=== PATIENT | male | born 1945 | race Caucasian/White ===

== ENCOUNTER 2021-03-31 06:25 | Day surgery (SDC) | payer MEDICARE, OTHER ==
[~2021-03-31] VITALS: Ht 177.8 cm; Wt 63.6 kg
[~2021-03-31 06:25] MED LIST: ACETAMINOPHEN325 M1 PO; ALENDRONATE SOD10 MG PO; ALLOPURINOL300 MG PO; ALTACE10 MG PO; ASPIR 8181 MG PO; CALCIUM 600 +1 EAC2 PO; CARVEDILOL25 MG PO; CHOLESTYRAMINE378 GM PO; COUMADIN2.5 MG PO; DIGOXIN125 MCG PO; ELIQUIS5 MG PO; ENTRESTO 97 MG1 EACH PO; EUCRISA60 GM TOP; FUROSEMIDE40 MG PO; FUROSEMIDE80 MG PO; HYDRALAZINE HCL25 MG PO; HYDROXYZINE HCL25 MG PO; HYDROXYZINE PAM25 MG PO; ISOSORBIDE DINI20 MG PO; ISOSORBIDE MONO30 MG PO; KLOR-CON M2020 MEQ PO; LIPITOR40 MG PO; LORCET 5-325 M1 EACH PO; MAG-OXIDE400 MG PO; MAGNESIUM250 M1 PO; MAGOX 400400 MG PO; MULTI VITAMIN1 EACH PO; NIACIN ER500 MG PO; NIACIN ER750 MG PO; NIACIN500 M1 PO; NIASPAN500 MG PO; PERCOCET 7.5-31 EACH PO; PREDNISONE1 MG PO; PREDNISONE2.5 MG PO; PREDNISONE20 MG PO; SIMVASTATIN20 MG PO; SPIRONOLACTONE25 MG PO; TACROLIMUS30 G1 TOP; TRAMADOL HCL50 MG PO; TRIAMCINOLONE A15 G1 TOP; ULTRA-LIGHT RO1 EACH MISC; VITAMIN D31000 UNIT PO; WARFARIN SODIU2.5 MG PO; WARFARIN SODIUM5 MG PO
--- NOTE | 2021-03-31 08:55 | NUR ---
03/31/21 0855 Camryn Ford 0808 PT ARRIVED IN PACU SLEEPY WITH NO C/O'S. ABD SOFT AND PASSING FLATUS. 0815 SITTING UP IN BED TALKING WITH STAFF. 0830 GETTING DRESSED WITH STAND BY ASSIST. DECLINED WATER WHEN OFFERED. 0850 DC INSTRUCTIONS GIVEN. ALL QUESTIONS ANSWERED. LEFT VIA W/C.
--- NOTE | 2021-03-31 10:38 | OR ---
[facility] [address] [place], [place] [address] Signed DATE OF OPERATION: 03/31/2021 SURGEON: Kasandra Matias MD PREOPERATIVE DIAGNOSES: 1. Iron-deficiency anemia. 2. History of colonic polyps in 2001. 3. Unremarkable colonoscopy in 2008. POSTOPERATIVE DIAGNOSES: 1. Moderate-sized antral gastric ulcer. 2. Mild to moderate gastroduodenitis. 3. Small to moderate sized hiatal hernia. 4. 4 mm polyp at 7 cm/rectum. 5. Minimal sigmoid diverticulosis. 6. Minimal internal hemorrhoids. PROCEDURES: 1. EGD with CLOtest and biopsies of the pyloric bulb, antrum and GE junction. 2. Colonoscopy with hot biopsy. ESTIMATED BLOOD LOSS: None. INDICATIONS: Jhonathan is a 76-year-old gentleman asked to see me for upper and lower endoscopy. He is discovered to have iron-deficiency anemia. He had a colonoscopy in 2001 and had colonic polyps removed. He then had colonoscopy in 2008, which was unremarkable. He currently has no upper or lower GI complaints. There is no family history of colon cancer or polyps. In the office, I had given him pamphlets on both upper and lower endoscopy. We had reviewed the nature of the two tests. He understands there is risk including, but not limited to gas bloating, crampy abdominal pain, bleeding, perforation requiring surgery, and missed diagnosis. In addition, because of his advanced age and medical issues, we did ask an anesthesia provider to help us with increased monitoring and sedation with propofol. He had expressed understanding and wished to proceed. PROCEDURE NOTE: Jhonathan was taken into our endoscopy suite and placed in a supine semi-recumbent position. A bite block was utilized for the case. He was given monitored anesthesia care with propofol per our nurse clinical rehabilitation aide. The adult scope was introduced and Electronically Signed By: KASANDRA MATIAS MD 03/31/21 [facility] PATIENT NAME: JHONATHAN GRAY OPERATIVE REPORT DATE OF : 47 REPORT #: [id number] PHYSICIAN: KASANDRA MATIAS MD PCP: AIMEE NAVARRO [facility] REPORT IS CONFIDENTIAL AND NOT TO BE RELEASED WITHOUT AUTHORIZATION [facility] [address] [place], [place] [address] Signed advanced under direct visualization of camera out into the third portion of the duodenum without difficulty. The duodenum was unremarkable. The pyloric channel showed some mild patchy erythematous changes. The stomach itself showed mild to moderate patchy diffuse erythematous changes with areas of punctate hemorrhage. All consistent with his gastritis. Also, he has average sized ulcer in the antrum with adherent clot in the base. No active bleeding at this time. We took biopsies from the pyloric bulb and antrum for pathologic review. We took an additional biopsy of the antrum for CLOtest. Upon retroflexion of scope, he has a small to moderate sized hiatal hernia. The scope was withdrawn up to the area of GE junction, which was compliant without stricture. He had mild disruption to the Z-line. We went and took a biopsy along this area for pathologic review. No Carreon's mucosa. No distal esophagitis. No gastric or esophageal varices. The middle and upper esophagus were unremarkable. After this, the gas had been suctioned out and the gastroscope removed. Jhonathan tolerated the upper endoscopy quite well. Jhonathan was rotated into the left lateral decubitus position. He was given IV sedation with propofol per our nurse clinical rehabilitation aide. A digital rectal exam was performed and he had good sphincter tone. Prostate was moderately indurated and enlarged consistent with his age. The adult colonoscope had been introduced and advanced under direct visualization of the camera. It took some additional sedation and abdominal compression in order to advance the scope into the cecum itself. His prep was quite excellent. We could easily see the appendiceal orifice and ileocecal valve. The scope was then slowly withdrawn. He had just a few diverticula in the sigmoid colon. They were small to moderate in size, few in number, and scattered about. He had one tiny polyp at 7 cm easily removed with a hot biopsy forceps. Upon retroflexion of scope, he has very minimal internal hemorrhoid tissue. After this, the gas was suctioned out and the colonoscope removed. Jhonathan tolerated the lower endoscopy quite well. RECOMMENDATIONS: Jhonathan will resume aspirin and Eliquis after four weeks. We will start omeprazole 20 mg p.o. b.i.d. for two months and then once a day thereafter. I will see him back in the office in 7 to 14 days to review his results. MD DAVI Campbell/KEN /[id number] Electronically Signed By: KASANDRA MATIAS MD 03/31/21 1038 PATIENT NAME: JHONATHAN GRAY OPERATIVE REPORT DATE OF : 47 REPORT #: [id number] PHYSICIAN: KASANDRA MATIAS MD PCP: AIMEE NAVARRO [facility] REPORT IS CONFIDENTIAL AND NOT TO BE RELEASED WITHOUT AUTHORIZATION [facility] [address] [place], [place] [address] Signed cc: Aimee Matias MD Copies: KASANDRA MATIAS MD ~ Electronically Signed By: KASANDRA MATIAS MD 03/31/21 1038 PATIENT NAME: JHONATHAN GRAY GUILLERMO OPERATIVE REPORT DATE OF : 47 REPORT #: [id number] PHYSICIAN: KASANDRA MATIAS MD PCP: AIMEE NAVARRO [facility] REPORT IS CONFIDENTIAL AND NOT TO BE RELEASED WITHOUT AUTHORIZATION
--- NOTE | 2021-04-01 16:23 | PATH ---
[facility] [address] [place], [place] [address] Signed SPECIMEN(S): A DUODENAL BULB SPECIMEN(S): B ANTRUM/PYLORUS SPECIMEN(S): C GE JUNCTION SPECIMEN(S): D COLON POLYP 7 CM SPECIMEN SOURCE: A. DUODENAL BULB B. ANTRUM/PYLORUS C. GE JUNCTION D. COLON POLYP 7 CM CLINICAL HISTORY: Anemia, history of polyps. Post-op: Gastroduodenitis, gastric ulcer, hiatal hernia, diverticulosis, rectal polyp, minimal internal hemorrhoids. MICROSCOPIC DESCRIPTION: Histologic sections of all submitted blocks are examined by light microscopy. These findings, together with the gross examination, support the pathologic diagnosis. FINAL PATHOLOGIC DIAGNOSIS: A. Duodenal bulb, biopsy: - Peptic duodenitis. - Negative for dysplasia or malignancy. B. Stomach, antrum/pylorus, biopsy: - Antral mucosa with reactive gastropathy. - Negative for Helicobacter organisms on HE stain. - Negative for dysplasia or malignancy. C. Gastroesophageal junction, biopsy: - Cardia-oxyntic type gastric mucosa with minimal chronic, inactive gastritis. - Negative for intestinal metaplasia, dysplasia, or malignancy. D. Colon, polyp at 7 cm, polypectomy: - Hyperplastic polyp. - Negative for dysplasia or malignancy. NAL:cml:C2NR GROSS DESCRIPTION: Four specimens are received in four containers, labeled "RH." A. The specimen, labeled "RH," and designated on the requisition "duodenal bulb," is received in formalin and consists of one whitlock soft tissue fragment that measures 0.3 cm in greatest dimension. The specimen is entirely submitted in cassette (A1). PATIENT NAME: JHONATHAN GRAY PATHOLOGY DATE OF : 47 REPORT #: [id number] PHYSICIAN: CLARY GHOTRA PCP: AIMEE NAVARRO PAC REPORT IS CONFIDENTIAL AND NOT TO BE RELEASED WITHOUT AUTHORIZATION [facility] [address] [place] [address] Signed B. The specimen, labeled "RH," and designated on the requisition "antrum/pylorus," is received in formalin and consists of one whitlock soft tissue fragment that measures 0.3 cm in greatest dimension. The specimen is entirely submitted in cassette (B1). C. The specimen, labeled "RH," and designated on the requisition "EG junction," is received in formalin and consists of one whitlock soft tissue fragment that measures 0.3 cm in greatest dimension. The specimen is entirely submitted in cassette (C1). D. The specimen, labeled "RH," and designated on the requisition "colon polyp at 7 cm," is received in formalin and consists of one whitlock soft tissue fragment that measures 0.3 cm in greatest dimension. The specimen is entirely submitted in cassette (D1). AT(under the direct supervision of a pathologist) The Gross Description was prepared using a voice recognition system. The report was reviewed for accuracy; however, sound-alike word errors, addition and/or deletions may occur. If there is any question about this report, please contact Client Services. PERFORMING LABORATORY: [facility], [address] [address] (CLIA# [id number]). Professional [facility] [address] [place] [address] (IA# [id number]). Diagnostician: Viki Fan MD Pathologist Electronically Signed 04/01/2021 Copies: ~ PATIENT NAME: GRAYJHONATHANDAVID LI PATHOLOGY DATE OF : 47 REPORT #: [id number] PHYSICIAN: CLARY GHOTRA PCP: AIMEE NAVARRO PAC REPORT IS CONFIDENTIAL AND NOT TO BE RELEASED WITHOUT AUTHORIZATION
== END 2021-03-31 08:50 | disposition home or self-care (01) ==
LOC: DS 06:25 → OPS 06:25 → DS 06:45 → OPS 08:50
PROVIDERS: ATTEND Colon & Rectal Surgery
PROC: 0DB68ZX Excision of Stomach, Via Natural or Artificial Opening Endoscopic, Diagnostic (ICD-10-PCS; 2021-03-31)
PROC: 0DBP8ZX Excision of Rectum, Via Natural or Artificial Opening Endoscopic, Diagnostic (ICD-10-PCS; 2021-03-31)
PROC: 0DB48ZX Excision of Esophagogastric Junction, Via Natural or Artificial Opening Endoscopic, Diagnostic (ICD-10-PCS; principal; 2021-03-31 06:45)
PROC: 0DB78ZX Excision of Stomach, Pylorus, Via Natural or Artificial Opening Endoscopic, Diagnostic (ICD-10-PCS; 2021-03-31 06:45)
DX: D50.9 Iron deficiency anemia, unspecified (principal); K25.9 Gastric ulcer, unspecified as acute or chronic, without hemorrhage or perforation; K29.90 Gastroduodenitis, unspecified, without bleeding; K44.9 Diaphragmatic hernia without obstruction or gangrene; K57.30 Diverticulosis of large intestine without perforation or abscess without bleeding; K62.1 Rectal polyp; K64.8 Other hemorrhoids; N18.30 Chronic kidney disease, stage 3 unspecified; I50.9 Heart failure, unspecified; I25.10 Atherosclerotic heart disease of native coronary artery without angina pectoris; E11.22 Type 2 diabetes mellitus with diabetic chronic kidney disease; E78.5 Hyperlipidemia, unspecified; Z79.01 Long term (current) use of anticoagulants; Z86.010 Personal history of colon polyps; Z87.891 Personal history of nicotine dependence
CPT/HCPCS: 86677; 88305; J2001; J2704; J7121

== ENCOUNTER 2022-02-16 22:35 | Emergency (ER) | payer MEDICARE, OTHER ==
[~2022-02-16] VITALS: Ht 177.8 cm; Wt 64.9 kg
== END 2022-02-17 02:15 | disposition home or self-care (01) ==
LOC: ED 22:35
DX: T82.897A Other specified complication of cardiac prosthetic devices, implants and grafts, initial encounter (principal); I50.9 Heart failure, unspecified; E78.00 Pure hypercholesterolemia, unspecified; M19.90 Unspecified osteoarthritis, unspecified site; Z87.891 Personal history of nicotine dependence; Z79.899 Other long term (current) drug therapy; Z79.82 Long term (current) use of aspirin; Z79.01 Long term (current) use of anticoagulants
CPT/HCPCS: 36415; 71045; 80048; 84484; 85025; 99285-25

== ENCOUNTER 2022-02-21 02:52 | Emergency (ER) | payer MEDICARE, OTHER ==
[~2022-02-21] VITALS: Ht 177.8 cm; Wt 64.9 kg
--- OUTSIDE RECORDS SUMMARY | 2022-02-21 02:58 | XMS ---
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 E.Mary VISIT COUNT (12 MO.) 2 [facility] TOTAL 2 NOTE: Visits indicate total known visits. 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
[2022-02-21] MEDS ORDERED: AMIODARONE HCL200 MG PO (03:02)
--- NOTE | 2022-02-23 19:07 | EKG ---
[facility] [address] [place] [address] Signed Atrial-sensed ventricular-paced rhythm Abnormal ECG When compared with ECG of 21-FEB-2022 02:53, (Unconfirmed) Electronic ventricular pacemaker has replaced Sinus rhythm Vent. rate has decreased BY 76 BPM Confirmed by CHELLY FRIEDMAN MD ([id number]) on 02/23/2022 7:06:48 PM Electronically Signed By: CHELLY FRIEDMAN MD 02/23/22 1907 PATIENT NAME: JOHNATHAN GRAY GUILLERMO Electrocardiogram DATE OF : 47 PHYSICIAN: CHELLY FRIEDMAN MD REPORT #: [id number] REPORT IS CONFIDENTIAL AND NOT TO BE RELEASED WITHOUT AUTHORIZATION
--- NOTE | 2022-02-23 19:07 | EKG ---
[facility] [address] [place] [address] Signed Sinus tachycardia with 1st degree AV block Nonspecific intraventricular block Inferior infarct , age undetermined Abnormal ECG When compared with ECG of 30-JUL-2016 18:58, Sinus rhythm has replaced Electronic ventricular pacemaker Vent. rate has increased BY 69 BPM Confirmed by CHELLY FRIEDMAN MD ([id number]) on 02/23/2022 7:06:44 PM Electronically Signed By: CHELLY FRIEDMAN MD 02/23/22 1907 PATIENT NAME: JHONATHAN GRAY GUILLERMO Electrocardiogram DATE OF : 47 PHYSICIAN: CHELLY FRIEDMAN MD REPORT #: [id number] REPORT IS CONFIDENTIAL AND NOT TO BE RELEASED WITHOUT AUTHORIZATION
== END 2022-02-21 06:40 | disposition home or self-care (01) ==
LOC: ED 02:52
DX: R00.0 Tachycardia, unspecified (principal); I50.9 Heart failure, unspecified; M19.90 Unspecified osteoarthritis, unspecified site; E78.00 Pure hypercholesterolemia, unspecified; Z87.891 Personal history of nicotine dependence; Z79.899 Other long term (current) drug therapy; Z79.82 Long term (current) use of aspirin; Z79.01 Long term (current) use of anticoagulants; Z20.822 Contact with and (suspected) exposure to COVID-19
CPT/HCPCS: 36415; 71045; 80053; 80162; 83735; 84484; 85025; 85610; 85730; 93005; 93010; 96374; 99285-25; J0153; U0003

== ENCOUNTER 2023-06-04 05:46 | Inpatient (IN) | payer MEDICARE, OTHER ==
[~2023-06-04] VITALS: Ht 177.8 cm; Wt 70.0 kg
--- OUTSIDE RECORDS SUMMARY | ~2023-06-04 | XMS | Continuity of Care Document ---
Demographics + + + | Address | [address] | | | [place] [address] | + + + | Preferred Language | Unknown | + + + | Marital Status | | + + + | Jain Affiliation | Unknown | + + + | Race | White | + + + | Ethnic Group | Unknown | + + + Author + + + | Author | [facility] | + + + | Organization | [facility] | + + + | Address | [address] | | | [place] [address] | + + + | Phone | | + + + Care Team Providers + + + + | Care Communications Maintainer Name | Role | Phone | + + + + Unavailable | Unavailable | + + + + Allergies and Intolerances + + + + + + | date | description | facility | reaction | severity | + + + + + + | (no date) | No Known Drug | [facility] | (no reaction) | (no severity) | | | Allergies | | | | + + + + + + Encounters No information. Functional Status No information. Immunizations No information. Medications No information. Problems + + + + | date | description | facility | + + + + | 2022-02-21 02:53 | Pure hypercholesterolemia, | [facility] | | | unspecified [facility] | + + + + | 2022-02-21 02:53 | Heart failure, unspecified | [facility] | | | | [facility] | + + + + | 2022-02-21 02:53 | Unspecified | [facility] | | | osteoarthritis, unspecified | [facility] | | | site | | + + + + | 2022-02-21 02:53 | Tachycardia, unspecified | [facility] | | | | [facility] | + + + + | 2022-02-21 02:53 | Contact with and | [facility] | | | (suspected) exposure to | [facility] | | | COVID-19 | | + + + + | 2022-02-21 02:53 | [facility] (current) use of | [facility] | | | anticoagulants | [facility] | + + + + | 2022-02-21 02:53 | 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 Results/Labs No information. Social History No information. Vital Signs No information."
--- OUTSIDE RECORDS SUMMARY | ~2023-06-04 | XMS | Continuity of Care Document ---
Demographics + + + | Address | [address] | | | [place] [address] | + + + | Preferred Language | Unknown | + + + | Marital Status | | + + + | Mosque Affiliation | Unknown | + + + | Race | White | + + + | Ethnic Group | Unknown | + + + Author + + + | Author | [facility] | + + + | Organization | [facility] | + + + | Address | [address] | | | [place] [address] | + + + | Phone | | + + + Care Team Providers + + + + | Care Compensator Name | Role | Phone | + + + + Unavailable | Unavailable | + + + + Allergies No information. Encounters No information. Functional Status No information. 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 Results/Labs No information. Social History No information. Vital Signs No information."
[~2023-06-04 05:46] MED LIST changes: +AMIODARONE HCL200 MG PO; +DIGITEK125 MCG PO; -DIGOXIN125 MCG PO
[2023-06-04] MEDS ORDERED: SYNTHROID50 MCG PO (06:01)
[2023-06-04] MEDS ORDERED: BENZONATATE100 MG PO (06:03)
[2023-06-04] MEDS ORDERED: AZITHROMYCIN250 MG PO (06:03)
[2023-06-04] MEDS ORDERED: AMOXICILLIN500 MG PO (06:03)
[2023-06-04 06:25] LABS: BASOPHILS 0.6 % (0-2); EOSINOPHILS 0.9 % (0-6); HEMATOCRIT 31.4 % (35.0-50.0); HEMOGLOBIN 10.1 g/dL (12.0-18.0); LYMPHOCYTES 6.2 % (24-44); MCH 27.9 (27-36); MCHC 32.1 g/dl (30-36); MCV 87.1 fl (81-99); NEUTROPHILS 82.3 % (39-80); PLATELET COUNT 277 K/uL (140-440); RDW 16.9 (10.5-15.0)
[2023-06-04 06:46] LABS: ALBUMIN 2.5 g/dL (3.4-5.0); ALBUMIN/GLOBULIN RATIO 0.64 (1.1-2.4); ANION GAP 16.3 (7-21); BILIRUBIN, TOTAL 1.5 ng/dL (0.2-1.0); BUN/CREATININE RATIO 21.05 (6.0-28.6); CALCIUM 8.6 mg/dL (8.5-10.1); CREATININE, SERUM 2.09 mg/dL (0.70-1.30); POTASSIUM 4.3 mmol/L (3.5-5.1); PROTEIN, TOTAL 6.4 g/dL (6.4-8.2)
[2023-06-04 07:07] LABS: INFLUENZA B NAA NEGATIVE (NEGATIVE); RESPIRATORY SYNCYTIAL VIR NAA NEGATIVE (NEGATIVE)
[2023-06-04 09:36] VITALS: BP 129/70
--- NOTE | 2023-06-04 09:55 | NUR ---
[facility] DAUGHTER IS PRESENT. PT ALERT AND COOPERATIVE ABLE TO SELF TRANSFER TO BED. ORIENTED TO BED CONTROLS AND CALL SYSTEM. PT DENIES DISCOMFORTS OR NEEDS OF. 02 SATS 95% [address] CURRENTLY. PULSE OX IS IN PLACE PT AGREES TO CALL FOR ANY ALARMS.
--- NOTE | 2023-06-04 11:48 | NUR ---
PT RESTING IN BED NO INCREASED SOB AT REST DENIES NEEDS OF. CALL LIGHT IN REACH
--- NOTE | 2023-06-04 12:56 | NUR ---
PT RESTING IN BED VISITING WITH A GUEST. REQUEST TYLENOL STATES HE IS SORE FROM COUGHING. MUCINEX, TESSALON PEARLS, AND TYLENOL ADMINISTERED. PT TOLERATES A SMALL AMOUNT OF NOON MEAL REFUSES OFFER OF ENSURE OR OTHER ITEMS.
--- NOTE | 2023-06-04 13:01 | NUR ---
Medications reconciled with patient with 2 changes
--- NOTE | 2023-06-04 13:33 | EKG ---
[facility] [address] [place] [address] Signed Atrial-sensed ventricular-paced rhythm Abnormal ECG When compared with ECG of 21-FEB-2022 04:05, Vent. rate has decreased BY 2 BPM Confirmed by Edison Finch MD () on 06/04/2023 1:32:43 PM Electronically Signed By: EDISON FINCH MD 06/04/23 1333 PATIENT NAME: GRAYJHONATHAN Electrocardiogram DATE OF : 47 PHYSICIAN: EDISON FINCH MD REPORT #: [id number] REPORT IS CONFIDENTIAL AND NOT TO BE RELEASED WITHOUT AUTHORIZATION
[2023-06-04 14:06] VITALS: BP 109/50
--- NOTE | 2023-06-04 14:57 | NUR ---
PT RESTING IN BED VISITORS X2 PRESENT. PT AGREES TESSALON PEARLS WERE HELPFUL FOR COUGH. PT NOTIFIED HE MAY HAVE IT AGAIN AROUND BEDTIME. TYLENOL HAS MADE HIM MORE CONMFORTABLE. IV SL'D PER ORDERS FRESH H20 PROVIDED.
--- NOTE | 2023-06-04 17:01 | NUR ---
PT CONTINUES RESTING IN BED VISITORS PRESENT X2. SATS MID 90'S [address] PT DENIES NEEDS OF ANYTHING AT THIS TIME
--- NOTE | 2023-06-04 19:15 | NUR ---
REPORT RECEIVED FROM MIRA MARTIN. pt RESTING IN BED AWAKE, 2L OXYGEN BY NC IN PLACE. SPO2 95%, CPOX ON. IV SL. pt HAS CALL LIGHT NEXT TO pt. FAMILY AT BEDSIDE. DENIES NEEDS.
[2023-06-04 20:55] VITALS: BP 141/60
--- NOTE | 2023-06-04 21:00 | NUR ---
IN pt ROOM FOR MEDICATION ADMINISTRATION. pt COUGHING, PRN MEDICATION ADMINISTERED. ASSESSMENT COMPLETE. LUNG SOUNDS COARSE THROUGHOUT ALL LOBES. pt USING IS AND CORANET. OXYGEN TITRATED TO 2L BY NC SPO2 DROPS TO 87%. IV SL WNL. PRN SLEEP MEDICATION ADMINISTERED. FAMILY IN ROOM. CALL LIGHT WITHIN REACH.
--- NOTE | 2023-06-04 21:33 | NUR ---
CALL LIGHT ANSWERED. SPO2 87-88% ON CPOX. OXYGEN TITRATED TO 3L BY NC. pt DENIES SOB, COUGHING NOTED. pt OFFERED PRN BREATHING TREATMENT AND DECLINES. CALL LIGHT IN REACH. LIGHTS TURNED OFF. URINAL EMPTIED.
--- NOTE | 2023-06-04 23:25 | NUR ---
pt RESTING IN BED WITH EYES CLOSED. SPO2 96% WITH 3L OXYGEN BY NC IN PLACE. HR 63 ON CPOX. NO DISTRESS NOTED. COUGHING HEARD.
[2023-06-05 01:51] VITALS: BP 111/49
--- NOTE | 2023-06-05 02:01 | NUR ---
pt RESTING IN BED AWAKE. REPORTS SLEEPING WELL FOR A LITTLE WHILE. SPO2 96%, TITRATED TO 2L OXYGEN BY NC AT THIS TIME, SPO2 93%. LUNG SOUNDS AUSCULTATED, COARSE IN BASES BILATERALLY. pt DENIES SOB, COUGHING NOTED. PRN MUCINEX ADMINISTERED. CALL LIGHT IN REACH.
--- NOTE | 2023-06-05 03:53 | NUR ---
ROUNDED ON pt. RESTING IN BED WITH EYES CLOSED, BREATHING UNLABORED. SPO2 WNL WITH 2L OXYGEN BY NC ON. LIGHTS OFF IN ROOM.
[2023-06-05 05:42] LABS: BASOPHILS 0.6 % (0-2); HEMOGLOBIN 9.6 g/dL (12.0-18.0); LYMPHOCYTES 5.4 % (24-44); MCH 27.8 (27-36); MCHC 32.3 g/dl (30-36); PLATELET COUNT 293 K/uL (140-440); RBC 3.45 M/ul (4.3-5.7)
[2023-06-05 05:43] LABS: EOSINOPHILS 0.8 % (0-6); HEMATOCRIT 29.7 % (35.0-50.0); MCV 86.2 fl (81-99); NEUTROPHILS 83.2 % (39-80); RDW 16.5 (10.5-15.0)
[2023-06-05 05:47] VITALS: BP 122/57
[2023-06-05 06:01] LABS: ALBUMIN 2.1 g/dL (3.4-5.0); ALBUMIN/GLOBULIN RATIO 0.55 (1.1-2.4); ANION GAP 13.6 (7-21); BILIRUBIN, TOTAL 1.4 ng/dL (0.2-1.0); BUN/CREATININE RATIO 22.09 (6.0-28.6); CALCIUM 8.4 mg/dL (8.5-10.1); CREATININE, SERUM 1.81 mg/dL (0.70-1.30); MAGNESIUM 2.2 mg/dL (1.8-2.4); PHOSPHORUS, INORGANIC 3.5 mg/dL (2.5-4.9); POTASSIUM 4.6 mmol/L (3.5-5.1); PROTEIN, TOTAL 5.9 g/dL (6.4-8.2)
--- NOTE | 2023-06-05 06:01 | NUR ---
pt AWAKE RESTING IN BED. 2L OXYGEN BY NC INPLACE, SPO2 WNL. VSS. pt DENIES. CALL LIGHT IN REACH.
--- NOTE | 2023-06-05 07:38 | NUR ---
PT AWAKE RESTING IN BED AT TIME OF SHIFT REPORT. SATS 94% ON 2 L02. DISCUSSED WITH PT NEED TO GET UP AND MOVING TODAY HE AGREES STATING HE'S NOT A STAY IN BED KIND OF PERSON. FRESH H20 TO BEDSIDE CALL LIGHT IN REACH.
--- NOTE | 2023-06-05 09:08 | NUR ---
PT TOLERATES SMALL AMOUNT OF MORNING MEAL, ENSURE AND OTHER ITEMS OFFERED. PT GOES DOWN TO C/T, WELL TOLERATED. SITTING IN THE RECLINER NOW VISITING WITH DAUGHTER. PT USES TRUMPET WITH ENCOURAGEMENT AGREES TO USE IT FREQUENTLY THROUGH OUT THE SHIFT. PT SATS 94% ON 1 L02 NC. PT REPORTS SMALL AMOUNT OF SPUTUM SECTRETIONS UNABLE TO DESCRIBE.
[2023-06-05 09:18] VITALS: BP 105/50
--- NOTE | 2023-06-05 10:13 | NUR ---
PT UP WORKING WITH P/T AT THIS TIME. DAUGHTER REMAINS PRESENT IN THE ROOM
--- NOTE | 2023-06-05 10:22 | NUR ---
PT DOESN'T TOLERATE ACTIVITY ON RA WITH P/T. 02 REPLACED AT 2LPM SLOW RECOVERY SATS RETURN TO 90'S
--- NOTE | 2023-06-05 10:30 | NUR ---
Spoke with pt and his daughter. Daughter lives with pt and they share chores of shopping, cleaning, cooking. Pt plans on dc to home when cleared medically. Pt drives and cares for self. He denies needs. Per daughter pt has walkers and canes, he does not use. Pt may need o2 on dc and explained to pt and daughter what this would entail. Pt denies any financial issues.
--- NOTE | 2023-06-05 10:43 | NUR ---
DR PERALTA IN TO SEE PT DAUGHTER IS PRESENT IN THE ROOM. ALL QUESTIONS ANSWERED.
--- NOTE | 2023-06-05 11:57 | NUR ---
ATTEMPTED TWICE TO VISIT. PT IN CONSULTATION OR RECEIVING CARE EACH TIME. UNABLE TO VISIT TODAY. SAID SILENT PRAYER FOR HEALING AND COMFORT.
--- NOTE | 2023-06-05 12:49 | NUR ---
PT CONTINUES UP IN THE CHAIR THIS SHIFT WITHOUT COMPLAINT. 02 ON AT 2LPM SATS LOW 90'S
[2023-06-05 13:49] VITALS: BP 102/45
--- NOTE | 2023-06-05 14:27 | NUR ---
PT CONTINUES IN THE CHAIR THIS SHIFT. DAUGHTER IS PRESENT IN THE ROOM. BREATHING EVEN AND UNLABORED SATS 95 ON 2 L
--- NOTE | 2023-06-05 15:24 | NUR ---
REPORT RECEIVED FROM MIRA MARTIN. THIS RN ASSUMING CARE OF PT FOR REMAINDER OF SHIFT. PT UP TO CHAIR, VISITING WITH FAMILY. PT REPORTS HE FEELS "BETTER TODAY" OVERALL. PT REPORTS HE CONTINUES TO FEEL WEAK AND IS UNABLE TO WALK MUCH NORMAL BUT "WAS ABLE TO DO SOME EXERCISE WITH PHYSICAL THERPAY." OXYGEN SATURATIONS 92-95% ON 2L O2 BY NC. LUNG SOUNDS CLEAR ON LEFT SIDE, COURSE THROUGHOUT ON RIGHT SIDE, UPPER MIDDLE AND LOWER LOBES. PT DENIES COUGH AT THIS TIME. PT REQUESTS TO GO BACK TO BED, 1 PERSON ASSIST PIVOT BACK TO BED. OXGYEN SATURATIONS DROP TO 88% WITH ACTIVITY, PT RECOVERS AFTER 1 MINUTE OF REST. PT REPORTS 3/10 "BODY ACHES" AND REQUESTS TYLENOL, SEE MAR FOR MEDICAITON GIVEN. PT RESTING IN BED, HEAD OF BED ELEVATED TO 25 DEGREES. NO ADDIITONAL REQUEST OR COMPLAINTS. CALL LIGHT WITHIN REACH. BED RAILS UP.
--- NOTE | 2023-06-05 16:14 | NUR ---
THIS RN TO ROOM TO CHECK ON PT. PT RESTING IN BED, HEAD OF BED TO 25 DEGREES. PT REPORTS 1/10 BODY ACHES THAT ARE "MUCH BETTER." PT DENIES NEED FOR ADDITIONAL PAIN MEDICATION. OXYGEN SATURATION 95% ON 2L O2 BY NC. PT VISITING WITH FAMILY. URINE SAMPLE SENT. ICE WATER REFILLED. NO ADDIITONAL REQUESTS OR COMPLAINTS. CALL LIGHT WITHIN REACH. BED RAILS UP.
--- NOTE | 2023-06-05 17:11 | NUR ---
THIS RN TO ROOM WITH DR. PERALTA FOR ROUNDS. PT AND FAMILY UPDATED ON PLAN OF CARE. PT AND FAMILY STATE THEIR QUESTIONS HAVE BEEN ANSWERED. PT UP TO CHAIR WITH STAND BY ASSIST AND FWW FOR DINNER. OXGYEN SATUARTION DROPS TO 85% WITH ACTIVITY, PT RECOVERS TO 94% AFTER 1 MINUTE. I.S. USE ENCORUAGED. PT REPORTS "MABYE AFTER DINNER." PT DENIES ADDITIONAL REQUESTS OR COMPLAINTS. CALL LIGHT WITHIN REACH. FAMILY AT BEDSIDE.
--- NOTE | 2023-06-05 18:08 | NUR ---
PT HERE WITH PNEUMONIA IN EBENEZER RIGHT LOWER LOBE WITH HYPOXIA. PT UP WITH STAND BY ASSIST AND FWW TO CHAIR AND WITH PHYSICAL THERAPY THIS SHIFT. PT TOELRATING 2 GM SODIUM DIET WITH GOOD INTAKE. PT REMAINS ON 2L O2 BY NC WITH OXGYEN STAURATIONS 93-96% WHILE RESTING, SATURATIONS DROP WITH ACTIVITY TO 85-88%, PT RECOVERS WITH TIME. LUGN SOUNDS CLEAR ON LEFT SIDE COURSE ON RIGH TSIDE. PO ABX ORDERED. ANNE MONTOYA SENT THIS SHIFT. PT USING I.S. AND ACAPELLA. PTS BLOOD PRESSURE LOW THIS EVENING WITH POSITIVE ORTHOSTATICS. AWARE. NEW ORDERS PLACED. PT VOIDING QUANITITY SUFFICIENT, ALTHOUGH LESS THIS EVENING. PT USES CALL LIGHT AND MAKES NEEDS KNOWN.
--- NOTE | 2023-06-05 18:25 | NUR ---
PIEROGI MAKER REPORTS PTS BLOOD PRESSURE READS LOW. THIS RN TO ROOM. PT DENIES DIZZINESS LIGHTHEADEDNESS OR SHORTNESS OF BREATH. PT DENIES CHEST PAIN. STAND BY ASSIST WITH FWW BACK TO BED. ORTHOSTATIC VITALS TAKEN, MILDY POSITIVE. DR. PERALTA CALLED AND UPDATED. ORDERS FOR TROPONIN AND ECHO GIVEN. ORDERS ENTERED, REPEAT BACK PERFORMED. PT AND FAMILY UPDATED. PT RESTING IN BED WITH HEAD OF BED ELEVATED TO 35 DEGREES. PT DENIES PAIN AND NASUEA. NO ADDITIONAL REQUESTS OR COMPLAINTS. CALL LIGHT WITHIN REACH. BED RAILS UP. FAMILY AT BEDSIDE.
--- NOTE | 2023-06-05 19:44 | NUR ---
REPORT RECEIVED FROM DAY SHIFT RN. PT LYING IN BED ALERT AND ORIENTED. DENIES NEEDS. 2L/NC IN PLACE. SpO2 96%. HR 65. WHITE BOARD UPDATED. CALL LIGHT IN REACH.
[2023-06-05 20:17] VITALS: BP 114/51
--- NOTE | 2023-06-05 20:33 | NUR ---
EVENING ASSESSMENT COMPLETE. SCHEDULED MEDS ADMIN PER EMAR. PT DENIES PAIN OR NAUSEA. 2L/NC IN PLACE. SpO2 HIGH 90'S. PT DENIES SOB. DRY COUGH NOTED. PRN FOR COUGH ADMIN. RIGHT LUNG SOUNDS COARSE. LEFT LUNG CLEAR. VS AND I&O OBTAINED. PT DUE TO VOID, HAS NO URGE AT THIS TIME. FAMILY IN ROOM. PT DENIES QUESTIONS OR CONCERNS. CALL LIGHT IN REACH.
--- NOTE | 2023-06-05 23:35 | NUR ---
PT RESTING IN BED WITH EYES CLOSED. RESPIRATIONS EVEN. SpO2 92% WITH 2L/NC. HR 60'S. CALL LIGHT IN REACH.
--- NOTE | 2023-06-06 01:25 | NUR ---
CALL LIGHT ANSWERED. PT REQUESTING SOMETHING FOR COUGH. NO PRN'S AVAILABLE AT THIS TIME. WARM TEA PROVIDED. HOB ELEVATED. OXYGEN IN PLACE. PT WITH SCANT AMOUNT RED TINGED SPUTUM. ASSESSMENT UNCHANGED. URINAL AMPTIED OF 200 ML CLEAR YELLOW URINE. PT REPORTS PAIN WHEN "STARTING STREAM." WILL MESSAGE MD. PT DENIES FURTHER NEEDS. CALL LIGHT IN REACH.
--- NOTE | 2023-06-06 02:42 | NUR ---
PT RESTING IN BED WITH EYES CLOSED. RESPIRATIONS EVEN. SpO2 LOW 90'S WITH NC IN PLACE. HR 60'S. HOB ELEVATED. CALL LIGHT IN REACH.
--- NOTE | 2023-06-06 02:58 | NUR ---
CALL LIGHT ANSWERED. PT REQUESTING EMESIS BAG. STATES "I'M COUGHING SO HARD I'M AFRAID I MIGHT THROW UP." EMESIS BAG PROVIDED. MD CALLED AND UPDATED ABOUT BLOODY SPUTUM AND COUGH. NEW TELEPHONE ORDERS RECEIVED VERIFIED WITH READBACK METHOD. PT SpO2 88-89%. OXYGEN TITRATED TO 3L/NC AT THIS TIME.
[2023-06-06 04:47] VITALS: BP 111/58
--- NOTE | 2023-06-06 05:14 | NUR ---
PT AWAKE IN BED. PRN FOR COUGH AND BILAT KNEE PAIN ADMIN PER EMAR. VS AND I&O OBTAINED. COFFEE PROVIDED. NO FURTHER NEEDS.
[2023-06-06 05:32] LABS: HEMOGLOBIN 9.7 g/dL (12.0-18.0); RDW 16.7 (10.5-15.0)
[2023-06-06 05:34] LABS: BASOPHILS 0.7 % (0-2); EOSINOPHILS 1.2 % (0-6); HEMATOCRIT 30.1 % (35.0-50.0); LYMPHOCYTES 5.1 % (24-44); MCH 27.4 (27-36); MCHC 32.1 g/dl (30-36); MCV 85.2 fl (81-99); MONOCYTES 8.5 % (0-12); NEUTROPHILS 84.5 % (39-80); PLATELET COUNT 333 K/uL (140-440); RBC 3.53 M/ul (4.3-5.7)
[2023-06-06 05:56] LABS: ALBUMIN/GLOBULIN RATIO 0.5 (1.1-2.4); ANION GAP 13.6 (7-21); BILIRUBIN, TOTAL 1.4 ng/dL (0.2-1.0); BUN/CREATININE RATIO 23.23 (6.0-28.6); CALCIUM 8.3 mg/dL (8.5-10.1); CREATININE, SERUM 1.98 mg/dL (0.70-1.30); POTASSIUM 4.6 mmol/L (3.5-5.1)
--- NOTE | 2023-06-06 07:33 | NUR ---
RECEIVED REPORT FROM NOC NURSE. PT IS A/O, RESPIRATIONS EVEN AND REGULAR. REMAINS ON 2L NC. DENIES NEEDS ATT.
[2023-06-06 07:59] LABS: BASOPHILS 0.6 % (0-2); HEMOGLOBIN 9.7 g/dL (12.0-18.0)
[2023-06-06 08:00] LABS: EOSINOPHILS 0.8 % (0-6); HEMATOCRIT 30.2 % (35.0-50.0); MCH 27.5 (27-36); MCHC 32.1 g/dl (30-36); MCV 85.5 fl (81-99); MONOCYTES 8.6 % (0-12); PLATELET COUNT 338 K/uL (140-440); RBC 3.53 M/ul (4.3-5.7); RDW 16.4 (10.5-15.0)
[2023-06-06 08:49] VITALS: BP 100/49
--- NOTE | 2023-06-06 09:30 | NUR ---
PATIENT FINISHED IN BATHROOM, AMBULATED WITH ASSIST AND FWW BACK TO BED. SATS ARE 81% ON 2L WHEN PLACED BACK ON PULSE OX. PATIENT ADJUSTED TO 3L AND IT TOOK SEVERAL MINUTES FOR PATIENT TO GET TO 89%. 3L O2 IS CURRENT SETTING.
[2023-06-06 09:34] VITALS: BP 104/54
--- NOTE | 2023-06-06 10:36 | NUR ---
SPOKE TO PATIENT ABOUT THE DISCHARGE PLAN. PATIENT PLANS TO GO HOME TO HIS HOUSE THAT HE SHARES WITH HIS DAUGHTER. SPOKE TO PATIENT ABOUT THE POSSIBLE NEED TO USE HOME O2 WHEN DISCHARGED. MD WROTE 1-2 MORE DAYS BEFORE DISCHARGE.
--- NOTE | 2023-06-06 13:48 | NUR ---
PT IN BED. IN CHAIR. PT ABLE TO TALK BUT APPEARED TO HAVE SOME DIFFICULTY. STATED HE THOUGTH WAS MAKING SLOW BUT STEADY PROGRESS. CONSENTED TO PRAYER. PRAYED FOR HEALING AND ABIDING PEACE.
[2023-06-06 13:49] VITALS: BP 102/44
--- NOTE | 2023-06-06 13:54 | NUR ---
ASSISTED PT TO CHAIR. CALL LIGHT WITHIN REACH. DENIES ANY OTHER NEEDS ATT.
--- NOTE | 2023-06-06 15:18 | NUR ---
PT CALL LIGHT ANSWERED BY RN. PT REQ NEW GOWN. RN NOTIFIED ME. I I&C TECHNICIAN IN ROOM TO PROVIDE PT GOWN. PT HELPED DRESS. PT PROVIDED NEW BLANKET. URINAL EMPTIED. NO NEEDS. CALL LIGHT WITHIN REACH
--- NOTE | 2023-06-06 16:19 | NUR ---
PRN TYLENOL ADMINISTERED.
[2023-06-06 17:36] VITALS: BP 95/42
--- NOTE | 2023-06-06 17:54 | NUR ---
PT BP 95/42 MAP(55). PT IS ASYMPTOMATIC. MD NOTIFIED. NO NEW ORDERS ATT.
--- NOTE | 2023-06-06 19:37 | NUR ---
REPORT RECEIVED FROM DAY SHIFT RN. PT LYING IN BED ALERT AND ORIENTED. SpO2 98% ON 3L/NC. OXYGEN TITRATED TO 2L. SpO2 MID 90'S. PT DENIES NEEDS. FAMILY AT BEDSIDE. WHITE BOARD UPDATED. CALL LIGHT IN REACH.
[2023-06-06 20:12] VITALS: BP 102/48
--- NOTE | 2023-06-06 21:17 | NUR ---
EVENING ASSESSMENT COMPLETE. SCHEDULED MEDS ADMIN PER EMAR. PT DENIES PAIN OR NAUSEA. DENIES SOB AT REST. O2 2L/NC IN PLACE. SpO2 MID 90'S. HR 60'S. WHEEZE HEARD IN UPPER RIGHT LUNG, COARSE IN RIGHT LUNG BASE. RT NOTIFIED FOR BREATHING TX. PRN ADMIN FOR COUGH. PT DENIES QUESTIONS OR CONCERNS. CALL LIGHT IN REACH.
--- NOTE | 2023-06-06 23:06 | NUR ---
PRN ADMIN FOR COUGH. PT REPORTS CLEAR SPUTUM WITH A "SPOT" OF BLOOD. DENIES SOB. URINAL EMPTIED. FRESH WATER PROVIDED. NO FURTHER NEEDS.
--- NOTE | 2023-06-07 01:30 | NUR ---
PT RESTING IN BED WITH EYES CLOSED. RESPIRATIONS EVEN. SpO2 LOW 90'S WITH 2L/NC. HR 60'S.
--- NOTE | 2023-06-07 03:59 | NUR ---
PT AWAKE IN BED. C/O COUGH AND ARTHRITIS PAIN. PRN FOR COUGH AND PAIN ADMIN PER EMAR. ASSISTED PT TO REPOSITION IN BED. ASSESSMENT DONE. NO FURTHER NEEDS.
[2023-06-07 05:52] VITALS: BP 104/51
[2023-06-07 06:36] LABS: ANION GAP 13.2 (7-21); BUN/CREATININE RATIO 23.61 (6.0-28.6); CALCIUM 8.1 mg/dL (8.5-10.1); CREATININE, SERUM 2.16 mg/dL (0.70-1.30); POTASSIUM 4.2 mmol/L (3.5-5.1)
--- NOTE | 2023-06-07 07:10 | NUR ---
REPORT RECEIVED FROM MIRA AARON. PT SITTING UP IN BED. PT RESPONDS WHEN ADDRESSED. PT O2 SATS 89-90% ON 2L NC. MIRA AARON INCREASES PTs O2 TO 3L NC. PT O2 SATS MAINTAIN AT 90%. PT DENIES ANY OTHER NEEDS AT THIS TIME. CALL LIGHT IN REACH.
[2023-06-07 08:44] VITALS: BP 102/53
--- NOTE | 2023-06-07 09:17 | NUR ---
IN TO ADMINISTER MEDICATIONS, SEE MAR. PT TAKES PO MEDICATIONS WITH NO ISSUES. DR. PERALTA IN ROOM. DISCUSSED WITH DR. PERALTA PTs BP 102/53 AND PULSE OF 64. PER DR. PERALTA "CUT COREG IN HALD 12.5MG PO 2 TIMES A DAY." VERIFIED WITH READBACK. COREG CUT IN HALF AND ADMINISTERED, SEE MAR. PER DR. PERALTA "LASIZ SHOULD ALSO BE PO, GO AHEAD AND GIVE IV DOSE, BUT CHANGE NEXT DOES TO PO. 20 MG 2 TIMES A DAY." VERIFIED WITH READBACK. ASSESSMENT COMPLETE. LUNG SOUNDS CLEAR IN MAHESH. COARS IN LLL, RUL AND RLL. BOWEL TONES ACTIVE. PT DENIES PAIN AT THIS TIME. PT DAUGHTER NEL ASKING TO TALK TO CASE MANAGEMENT. WILL CALL CASE MANAGEMENT. PT DENIES ANY OTHER NEEDS AT THIS TIME. CALL LIGHT IN REACH. RT IN ROOM.
[2023-06-07 09:45] LABS: LEGIONELLA PNEUMOPHILA AG,URN Negative (Negative)
--- NOTE | 2023-06-07 09:45 | NUR ---
SPOKE TO PATIENT AND DAUGHTER ABOUT TRANSITIONAL CARE / SWING BED PROGRAM THAT THE PATIENT CAN BE CHANGED TO WHEN THE MD THINKS THE PATIENT IS READY TO BE SWITCHED TO THE PROGRAM. A HANDOUT WAS GIVEN AND REVIEWED WITH DAUGHTER AND THE PATIENT. THE PATIENT WILL DISCUSS THE PROGRAM WITH HIS DAUGHTER AND THE GEEK SQUAD MANAGER WILL RETURN LATER TODAY TO LET THE GEEK SQUAD MANAGER KNOW THE CHOICE OF THE PATIENT AND THE DAUGHTER..
--- NOTE | 2023-06-07 11:30 | NUR ---
IN TO ROUND ON PT. PT SITTING UP IN RECLINER. FAMILY IN ROOM. PT COUGH NOTED. OFFERED PRN MUCINEX AND TESSALAN PERALS. PT ACCEPTS. PRN MEDICATION ADMINISTERED, SEE MAR. PT DENIES ANY OTHER NEEDS AT THIS TIME. CALL LIGHT IN REACH.
--- NOTE | 2023-06-07 12:46 | NUR ---
IN TO ROUND ON PT. PT SITTING UP IN RECLINER. PT REQUESTING ICE WATER. THIS RN ASKED ALEX COOLEY TO GET PT WATER. PT DENIES ANY OTHER NEEDS AT THIS TIME. CALL LIGHT IN REACH.
--- NOTE | 2023-06-07 12:56 | NUR ---
PT IN CHAIR. DAUGHTER ON COUCH. PT STATES IS FEELING BETTER BUT FEELS PROGRESS IS SLOW. PT STATED DESIRE FOR SWING BED DAUGTHER IS LEAVING SOON TO TAKE GRANDDAUGHTER TO COLLEGE. PT IS CONCERNED ABOUT BEING HOME ALONE. DENIED NEEDS AT THIS TIME. CONSENTED TO PRAYER. PRAYED FOR HEALING AND SAFE TRAVELS.
--- NOTE | 2023-06-07 12:59 | NUR ---
SPOKE TO PATIENT ABOUT THE DISCHARE PLAN OF CARE. PATIENT WOULD LIKE TO BE CHANGED TO SWINGBED WHEN MEDICALLY STABLE. PATIENT FEELS HE WILL GET GREAT CARE AND UNDERSTANDS THAT HE WILL BE DOING PT/OT REHAB. EVERYDAY.
--- NOTE | 2023-06-07 13:05 | NUR ---
IN TO ADMINISTER MEDICATION, SEE MAR. PT TAKES PO MEDICATION WITH NO ISSUES. PT UP IN RECLINER. FAMILY IN ROOM. PT DENIES ANY OTHER NEEDS AT THIS TIME. CALL LIGHT IN REACH.
[2023-06-07 14:11] VITALS: BP 99/47
[2023-06-07 14:38] LABS: STREPTOCOCCUS PNEUMONIAE AG,UR Negative (Negative)
--- NOTE | 2023-06-07 15:08 | NUR ---
IN TO ADMINISTER MEDICATION, SEE MAR. PT TAKES PO MEDICAITON WITH NO ISSUES. PT USING IS WHEN THIS RN ENTERS ROOM. ASSESSMENT COMPLETE. PT DENIES PAIN AT THIS TIME. LUNG SOUNDS CLEAR IN RUL AND MAHESH. COARSE IN RLL AND LLL. PT AT 98% ON 3.5L NC. PT TITRATED TO 2L NC AND PT MAINTAINS BETWEEN 97-98%. PT DENIES ANY OTHER NEEDS AT THIS TIME. CALL LIGHT IN REACH. FAMILY IN ROOM.
--- NOTE | 2023-06-07 16:35 | NUR ---
IN TO ADMINISTER IV MEDICATION, SEE MAYANK. IV FLUSHES WNL. MEDICATION ADMINISTERED, SEE MAR. LENORA CNA IN ROOM ASSISTING PT WITH BED BATH. NO OTHER NEEDS FROM THIS RN AT THIS TIME. CALL LIGHT IN REACH.
[2023-06-07 17:44] VITALS: BP 99/40
--- NOTE | 2023-06-07 19:20 | NUR ---
Patient up in chair, visiting with granddaughter. No complaints, Bedside report given by
[2023-06-07 20:53] VITALS: BP 98/51
--- NOTE | 2023-06-07 22:02 | NUR ---
Patient one person assisted back to bed. Gait slow and unsteady. Increased o2 needs with activity. Sats drop to 82-84% and oxygen increased to 4 liters. When at rest oxygen down to 2liters/nc with O2 sats 91-92%. Patient denies SOB or CP at this time. Lights out for bedtime.
--- NOTE | 2023-06-08 01:44 | NUR ---
Azam has been sleeping comfortable, Nausea resolved with compazine, VSS, RENETTA with 70 ml output, drain intact and bulb compressed. Abdominal dressing remains intact, wells intact with 125ml output in last 3hours with shift accumulative = 275ml thus far.
--- NOTE | 2023-06-08 01:51 | NUR ---
Azam josiah up briefly, stated he was sleeping good, U.O. of 150ml. Azam without complaint. Oxygen remains at 2 liters/NC keeping sats at 91-92%. Decreased coughing tonight.
--- NOTE | 2023-06-08 04:32 | NUR ---
Azam is resting comfortable with eyes closed, no distress, maintaining oxygen sats at 91-92%.
[2023-06-08 05:54] VITALS: BP 109/49
--- NOTE | 2023-06-08 05:58 | NUR ---
Azam slept well last night, minimal coughing, VSS, Lungs coarse in the bases, Has remained on 2liters through the night with O2 sats 91-92%. Did require an increase to 4liters with activity as sats dropped to low 80's. Maintained continous pulse ox throughout the night with no dips below 90 noted. C/O FERRELL and medicated with tylenol. Assisted from chair to bed with 1 person assist, gait slow and unsteady.
--- NOTE | 2023-06-08 07:15 | NUR ---
REPORT RECEIVED FROM MIRA ARRIETA. PT SITTING UP IN RECLINER WITH 2L O2 VIA NC.O2 SATS AT 92%. PT DENIES ANY OTHER NEEDS AT THIS TIME. CALL LIGHT IN REACH.
--- NOTE | 2023-06-08 07:45 | NUR ---
THIS ACTUARIAL ASSISTANT HAS TAKEN OVER CARES FOR THIS PT FROM [employer] ACTUARIAL ASSISTANT. PT IS CURRENTLY SITTING UP IN CHAIR WITH LEGS ELEVATED. PT REQUESTED A PILLOW TO BE PUT UNDER HIS BOTTOM. WHEN PT STOOD UP HIS OXYGEN SATURATION DROPPED TO THE LOW 80s. PT RETURNED TO SITTING POSITION WITH LEGS ELEVATED. OXYGEN SATURATION INCREASED BACK TO THE 90s. CALL LIGHT WITHIN REACH. PT IS REQUESTING TYLENOL. NURSE NOTIFIED OF PT REQUEST. NO OTHER NEEDS AT THIS TIME.
[2023-06-08 09:20] VITALS: BP 102/42
[2023-06-08] MEDS ORDERED: DOXYCYCLINE HY100 MG PO (09:34)
[2023-06-08] MEDS ORDERED: CARVEDILOL6.25 MG PO (09:35)
[2023-06-08 09:42] VITALS: BP 102/42
--- NOTE | 2023-06-08 09:46 | NUR ---
IN TO ADMINISTER MEDICATIONS, SEE MAR. PT TAKES PO MEDICATION WITH NO ISSUES. PT REPORTING HEADACHE 02/06. PRN MEDICATION ADMINISTERED, SEE MAR. VITALS AND I&Os COMPLETE. ASSESSMENT COMPLETE. LUNG SOUNDS CLEAR IN RUL, MAHESH AND LLL. RLL COARSE. BOWEL TONES ACTIVE. ABD NON-TENDER WITH PALPATION. PT ON 2L O2 VIA NC WITH O2 SATS AT 91%. PT DENIES ANY OTHER NEEDS AT THIS TIME. CALL LIGHT IN REACH. FAMILY MEMBER IN ROOM.
--- NOTE | 2023-06-08 11:34 | NUR ---
IN TO ROUND ON PT. PT UP IN RECLINER WITH 2L NC. O2 SATS AT 90-91%. PT REQUESTING ICE WATER. ICE WATER PROVIDED. PT DENIES ANY OTHER NEEDS AT THIS TIME. CALL LIGHT IN REACH. FAMILY IN ROOM.
== END 2023-06-08 10:10 | disposition swing bed (61) | DRG 193 ==
LOC: ED 05:46 → MS 08:53
PROVIDERS: Internal Medicine; ADMIT Family Medicine; ATTEND Family Medicine
DX: J18.9 Pneumonia, unspecified organism (principal); I50.23 Acute on chronic systolic (congestive) heart failure; J96.01 Acute respiratory failure with hypoxia; N17.9 Acute kidney failure, unspecified; I13.0 Hypertensive heart and chronic kidney disease with heart failure and stage 1 through stage 4 chronic kidney disease, or unspecified chronic kidney disease; I48.20 Chronic atrial fibrillation, unspecified; R04.2 Hemoptysis; N18.9 Chronic kidney disease, unspecified; E03.9 Hypothyroidism, unspecified; E78.00 Pure hypercholesterolemia, unspecified; M19.90 Unspecified osteoarthritis, unspecified site; Z20.822 Contact with and (suspected) exposure to COVID-19; Z87.891 Personal history of nicotine dependence; Z95.0 Presence of cardiac pacemaker; Z90.89 Acquired absence of other organs; Z95.5 Presence of coronary angioplasty implant and graft; Z98.890 Other specified postprocedural states; Z79.899 Other long term (current) drug therapy; Z79.82 Long term (current) use of aspirin; Z79.01 Long term (current) use of anticoagulants; Z79.02 Long term (current) use of antithrombotics/antiplatelets; Z79.811 Long term (current) use of aromatase inhibitors; Z79.2 Long term (current) use of antibiotics
CPT/HCPCS: 36415; 71045; 71250; 80048; 80053; 83735; 83880; 84100; 84484; 85025; 87040; 87449; 87502; 87899; 93005; 93010; 93308; 94640; 94667; 94668; 94761; 94762; 96365; 97110; 97162; 97530; 99285-25; A9270; C9803; J1940; J1956; U0002

== ENCOUNTER 2023-06-08 10:10 | Inpatient (IN) | payer MEDICARE, OTHER | END 2023-06-09 11:04 | disposition still patient (30) | DRG 193 | LOC: MS 10:10 | PROVIDERS: ADMIT Internal Medicine | DX: J18.9 Pneumonia, unspecified organism (principal); J96.01 Acute respiratory failure with hypoxia; I50.33 Acute on chronic diastolic (congestive) heart failure; I13.0 Hypertensive heart and chronic kidney disease with heart failure and stage 1 through stage 4 chronic kidney disease, or unspecified chronic kidney disease; J44.1 Chronic obstructive pulmonary disease with (acute) exacerbation; N17.9 Acute kidney failure, unspecified; I48.20 Chronic atrial fibrillation, unspecified; J44.0 Chronic obstructive pulmonary disease with (acute) lower respiratory infection; N18.9 Chronic kidney disease, unspecified; E03.9 Hypothyroidism, unspecified; E78.00 Pure hypercholesterolemia, unspecified; R00.0 Tachycardia, unspecified; Z79.01 Long term (current) use of anticoagulants; Z79.82 Long term (current) use of aspirin; Z79.890 Hormone replacement therapy; Z79.899 Other long term (current) drug therapy; Z79.02 Long term (current) use of antithrombotics/antiplatelets; Z79.2 Long term (current) use of antibiotics ==

== ENCOUNTER 2023-06-09 11:04 | Inpatient (IN) | payer MEDICARE, OTHER | END 2023-06-11 17:46 | disposition short-term general hospital (02) | DRG 189 | LOC: MS 11:04 | PROVIDERS: ADMIT Internal Medicine | PROC: 4A033R1 Measurement of Arterial Saturation, Peripheral, Percutaneous Approach (ICD-10-PCS; principal; 2023-06-09) | PROC: 5A09357 Assistance with Respiratory Ventilation, Less than 24 Consecutive Hours, Continuous Positive Airway Pressure (ICD-10-PCS; 2023-06-09) | DX: J96.01 Acute respiratory failure with hypoxia (principal); I50.33 Acute on chronic diastolic (congestive) heart failure; J18.9 Pneumonia, unspecified organism; J44.1 Chronic obstructive pulmonary disease with (acute) exacerbation; N17.9 Acute kidney failure, unspecified; I13.0 Hypertensive heart and chronic kidney disease with heart failure and stage 1 through stage 4 chronic kidney disease, or unspecified chronic kidney disease; I48.20 Chronic atrial fibrillation, unspecified; Z20.822 Contact with and (suspected) exposure to COVID-19; N18.9 Chronic kidney disease, unspecified; E03.9 Hypothyroidism, unspecified; E78.00 Pure hypercholesterolemia, unspecified; Z79.82 Long term (current) use of aspirin; Z79.899 Other long term (current) drug therapy; Z79.01 Long term (current) use of anticoagulants; Z79.890 Hormone replacement therapy ==